=== PATIENT | female | born 1970 | race Caucasian/White ===

== ENCOUNTER 2017-05-06 10:40 | Emergency (ER) | payer BC ==
[2017-05-06 11:02] VITALS: BP 133/84
--- NOTE | 2017-05-06 11:25 | RAD ---
INDICATION: Atraumatic heel pain. TECHNIQUE: 4 views of the left calcaneus were obtained. FINDINGS: The bones are in normal alignment. No fracture is seen. Joint spaces appear maintained. There are spurs arising from the posterior and inferior aspect of the calcaneus. IMPRESSION: CALCANEAL SPURS.
--- NOTE | 2017-05-13 17:10 | UC ---
Lower Extremity/Ankle HPI - HPI Summary HPI Summary: 46 year old presents with complains of left heel pain - History of Current Complaint Chief Complaint: UCLowerExtremity Stated Complaint: LEFT HEEL PAIN Time Seen by Provider: 05/06/17 11:00 Hx Last Menstrual Period: 06/27/16 Pain Intensity: 8 Pain Scale Used: 0-10 Numeric - Allergies/Home Medications Allergies/Adverse Reactions: Allergies Allergy/AdvReac Type Severity Reaction Status Date / Time No Known Allergies Allergy Verified 05/06/17 10:55 PMH/Surg Hx/FS Hx/Imm Hx - Surgical History Surgical History: Yes Surgery Procedure, Year, and Place: tubal ligation age 26, endometriosis 2013 - Family History Known Family History: Positive: None - Social History Alcohol Use: Weekly Substance Use Type: None Smoking Status (MU): Former Smoker Type: Cigarettes When Did the Patient Quit Smoking/Using Tobacco: APPROX 10/2015 - Immunization History Most Recent Influenza Vaccination: NONE 2015 Most Recent Tetanus Shot: UTD Most Recent Pneumonia Vaccination: N/A Review of Systems Constitutional: Negative Skin: Negative Eyes: Negative ENT: Negative Respiratory: Negative Cardiovascular: Negative Gastrointestinal: Negative Genitourinary: Negative Motor: Negative Neurovascular: Negative Musculoskeletal: Other: - left heel pain Neurological: Negative Psychological: Negative All Other Systems Reviewed And Are Negative: Yes Physical Exam Triage Information Reviewed: Yes Vital Signs: Initial Vital Signs Temp 36.7 C 05/06/17 10:56 Pulse 74 05/06/17 10:56 Resp 16 05/06/17 10:56 BP 133/84 05/06/17 10:56 Pulse Ox 100 05/06/17 10:56 Eye Exam: Normal ENT Exam: Normal Dental Exam: Normal Neck exam: Normal Neck: Positive: 1 Respiratory Exam: Normal Cardiovascular Exam: Normal Abdominal Exam: Normal Musculoskeletal: Positive: ROM Limited @, Other: - left heel pain Neurological Exam: Normal Psychological Exam: Normal Skin Exam: Normal Lower Extremity Course/Dx - Differential Dx/Diagnosis Provider Diagnoses: left heel pain Discharge - Discharge Plan Condition: Stable Disposition: HOME Prescriptions: Methylprednisolone [Medrol Dosepak 4 MG*] 4 mg PO .SEE MIGUE INSTRUCTION #21 tab Patient Education Materials: Heel Spur (ED) Referrals: No Primary Care Phys,NOPCP [Primary Care Provider] - If Needed
== END 2017-05-06 11:36 | disposition home or self-care (01) ==
LOC: UCCORT 10:40
DX: M79.672 Pain in left foot (principal); Z87.891 Personal history of nicotine dependence
CPT/HCPCS: 99212; G0463

== ENCOUNTER 2017-10-06 09:54 | Emergency (ER) | payer OTHER ==
[2017-10-06 10:17] VITALS: BP 122/70
[2017-10-06] MEDS ORDERED: Ibuprofen TAB* 600 MG PO ONE (10:17)
--- NOTE | 2017-10-06 10:46 | RAD ---
HISTORY: Right shoulder pain COMPARISONS: None VIEWS: 4, Frontal internal rotation, external rotation, outlet, and axillary views of the right shoulder FINDINGS: BONE DENSITY: Normal. BONES: There is no displaced fracture. JOINTS: There is mild osteoarthritis of the a.c. and glenohumeral joints ALIGNMENT: There is no dislocation. SOFT TISSUES: Unremarkable. OTHER FINDINGS: None. IMPRESSION: OSTEOARTHRITIS. NO ACUTE OSSEOUS INJURY. IF SYMPTOMS PERSIST, RECOMMEND REPEAT IMAGING.
--- NOTE | 2017-10-06 10:46 | UC ---
Upper Extremity HPI - HPI Summary HPI Summary: 47 year old female with work in [employer]. Sudden onset right shoulder pain with "tingling" in right fifth finger while trying to break down a cardboard box at work at ~0930. No pain in shoulder at rest but patient states the pain in her fifth finger is 15/10 at rest. Patient works at [employer]. PCP Anaya Gillis. [ End ] - History of Current Complaint Chief Complaint: UCUpperExtremity Stated Complaint: WC-RT SHOULDER INJURY Time Seen by Provider: 10/06/17 10:41 Hx Obtained From: Patient Hx Last Menstrual Period: "last month" Onset/Duration: Sudden Onset Severity Initially: Mild Severity Currently: Severe Pain Scale Used: 0-10 Numeric - 15 Aggravating Factor(s): Movement Alleviating Factor(s): Nothing Associated Signs And Symptoms: Positive: Negative - Allergies/Home Medications Allergies/Adverse Reactions: Allergies Allergy/AdvReac Type Severity Reaction Status Date / Time Bee Venom Allergy Anaphylatic Verified 10/06/17 10:05 Shock PMH/Surg Hx/FS Hx/Imm Hx Previously Healthy: Yes - Surgical History Surgical History: Yes Surgery Procedure, Year, and Place: Endometriosis, 2013; Tubal Ligation, 1985 - Family History Known Family History: Positive: None - Social History Occupation: Employed Full-time Alcohol Use: Occasionally Substance Use Type: None Smoking Status (MU): Former Smoker Type: Cigarettes Length of Time of Smoking/Using Tobacco: Some Day Smoker When Did the Patient Quit Smoking/Using Tobacco: ~2016 Household Exposure Type: Cigarettes - Immunization History Most Recent Influenza Vaccination: Not the 2016/2017 Season Most Recent Tetanus Shot: UTD Most Recent Pneumonia Vaccination: N/A Review of Systems Musculoskeletal: Arthralgia, Decreased ROM All Other Systems Reviewed And Are Negative: Yes Physical Exam Triage Information Reviewed: Yes Appearance: Well-Appearing, Well-Nourished, Pain Distress - moderate Vital Signs: Initial Vital Signs Temp 99.4 F 10/06/17 10:03 Pulse 76 10/06/17 10:03 Resp 16 10/06/17 10:03 BP 122/70 10/06/17 10:03 Pulse Ox 100 10/06/17 10:03 Vital Signs Reviewed: Yes Respiratory Exam: Normal Cardiovascular Exam: Normal Musculoskeletal: Positive: ROM Limited @ - (+) Impingement sign. hand strength 5 /5. sensation intact. cap refill < 3 sec. peripheral pulses intact. limited ROM at shoulder. tenderness to palpation of the shoulder diffusely as well as medial elbow. hand and wrist FROM of normal strength Neurological Exam: Normal Psychological Exam: Normal Skin Exam: Normal Upper Extremity Course/Dx - Course Course Of Treatment: treat radiculopathy at this time. if sx worsen to go to ED - Differential Dx/Diagnosis Differential Diagnosis/HQI/PQRI: Fracture (Open), Strain, Sprain Provider Diagnoses: Cervical radiculopathy Discharge - Discharge Plan Condition: Good Disposition: HOME Prescriptions: Cyclobenzaprine TAB* [Flexeril 10 MG TAB*] 10 mg PO BID PRN #14 tab PRN Reason: Spasms Ibuprofen TAB* [Motrin TAB* 800 MG] 800 mg PO TID PRN #30 tab PRN Reason: Pain Methylprednisolone [Medrol Dosepak 4 MG*] 0 mg PO .SEE MIGUE INSTRUCTION #1 tab Patient Education Materials: Cervical Radiculopathy (ED) Forms: *Work Release Referrals: No Primary Care Phys,NOPCP [Primary Care Provider] - Juan Manuel Galloway MD [Medical Doctor] - As Soon As Possible (Ortho referral ) Additional Instructions: As we discussed if your symptoms worsen or you develop weakness in the arm then go to Emergency Room
== END 2017-10-06 11:05 | disposition home or self-care (01) ==
LOC: UCCORT 09:54
DX: M54.12 Radiculopathy, cervical region (principal); Z87.891 Personal history of nicotine dependence; Z72.89 Other problems related to lifestyle
CPT/HCPCS: 99212; A9270-GY; G0463

== ENCOUNTER 2017-10-12 10:24 | Emergency (ER) | payer OTHER ==
[2017-10-12 10:45] VITALS: BP 143/103
--- NOTE | 2017-10-12 10:58 | UC ---
Upper Extremity HPI - HPI Summary HPI Summary: Pt presents with right shoulder pain sustained at work on 10/06/17. She works at [employer] and tells me that she was cutting/tearing down a cardboard box and her left hand slipped and her right arm/shoulder was pulled and strained. She had immediate pain and was seen at [facility] that same day. At that time a shoulder XR was performed and was negative for acute process. She had numbness in her right pinky and was diagnosed with cervical radiculopathy - given prednisone, flexeril, and ibuprofen and advised to f/u with orthopedics. She is here today with continued pain. She was unable to see orthopedics because none of their providers currently treat spine related complaints. Today she tells me that the pain is in her posterior right shoulder with intermittent "burning" to her lateral right elbow, sometimes down to her right pinky finger. She has significant difficulty with shoulder flexion/extension. She has been taking ibuprofen with minimal relief. She takes the flexeril and finds that it helps, but can only take it at night because it makes her tired. She has not tried the steroid yet because she is afraid to take steroids as she has heard bad stories. Denies fever, chills, SOB, headache, dizziness, neck pain, chest pain, N/V/D/C. - History of Current Complaint Chief Complaint: UCUpperExtremity Stated Complaint: RIGHT SHOULDER INJURY F/U WC Time Seen by Provider: 10/12/17 10:57 Hx Obtained From: Patient Hx Last Menstrual Period: 10/08/17 Onset/Duration: Sudden Onset Severity Initially: Severe Severity Currently: Severe Pain Intensity: 10 Pain Scale Used: 0-10 Numeric Location Of Pain: Is Discrete @ Character: Dull, Aching, Spasmodic, Stiffness, Burning Aggravating Factor(s): Movement, Lifting, Flexion, Extension Alleviating Factor(s): Rest Associated Signs And Symptoms: Positive: Numbness/Tingling - Allergies/Home Medications Allergies/Adverse Reactions: Allergies Allergy/AdvReac Type Severity Reaction Status Date / Time Bee Venom Allergy Anaphylatic Verified 10/12/17 10:39 Shock PMH/Surg Hx/FS Hx/Imm Hx Previously Healthy: Yes - Surgical History Surgical History: Yes Surgery Procedure, Year, and Place: tubal ligation age 26, endometriosis 2013 - Family History Known Family History: Positive: None - Social History Occupation: Employed Full-time Lives: With Family Alcohol Use: Occasionally Substance Use Type: None Smoking Status (MU): Never Smoked Tobacco Type: Cigarettes Length of Time of Smoking/Using Tobacco: Some Day Smoker When Did the Patient Quit Smoking/Using Tobacco: APPROX 10/2015 Household Exposure Type: Cigarettes - Immunization History Most Recent Influenza Vaccination: NONE 2015 Most Recent Tetanus Shot: UTD Most Recent Pneumonia Vaccination: N/A Review of Systems Constitutional: Negative Skin: Negative Respiratory: Negative Cardiovascular: Negative Gastrointestinal: Negative Musculoskeletal: Decreased ROM - Right shoulder, Other: - Right shoulder pain Neurological: Numbness - Right UE Psychological: Negative All Other Systems Reviewed And Are Negative: Yes Physical Exam Triage Information Reviewed: Yes Appearance: Well-Appearing, No Pain Distress, Well-Nourished Vital Signs: Initial Vital Signs Temp 99.4 F 10/12/17 10:40 Pulse 72 10/12/17 10:40 Resp 18 10/12/17 10:40 BP 143/103 10/12/17 10:40 Vital Signs Reviewed: Yes Neck: Positive: Supple, No Lymphadenopathy, Other: - NTTP. FROM. Respiratory: Positive: Chest non-tender, Lungs clear, Normal breath sounds, No respiratory distress, No accessory muscle use Cardiovascular: Positive: RRR, No Murmur, Pulses Normal, Brisk Capillary Refill - B/L UEs Musculoskeletal: Positive: No Edema, Strength Limited @ - Right shoulder flexion 3/5 compared to left. Crab Steamer strength, abduction, and adduction 5/5 b/l., ROM Limited @ - Right shoulder flexion to 45 deg before pain in posterior shoulder., Other: - TTP over right trapezius and deltoid. No obvious bony deformities. Unable to perform reliable specialized testing due to pain and refusal. Neurological: Positive: Alert, Other: - C4-T1 sensations intact B/L UEs. No focal deficits Psychological: Positive: Age Appropriate Behavior Skin: Positive: Other - No erythema or ecchymosis overlying the right UE. Negative: rashes Upper Extremity Course/Dx - Course Course Of Treatment: She tells me that she does have a history of cervical degenerative disc disease, but has never had numbness or tingling in her UEs until this injury. It is possible she is experiencing cervical radiculopathy from a cervical pathology, but her sensations are intact at rest on exam today. She experinces 10/10 pain along the muscles of the lateral and posterior right shoulder when palpated. I believe the majority of her pain is coming from a muscle spasm/strain and that she would benefit from NSAIDs and physical therapy. Given previous dx of cervical radiculopathy, hx of cervical DDD, and current "numbness/burning" sensation - will refer to her neurosurgery for evaluation. IM toradol given today. Rx for ketorolac po for 5 days. Advised to take the steroids and flexeril as previously prescribed and stop ibuprofen. - Differential Dx/Diagnosis Differential Diagnosis/HQI/PQRI: Contusion, Strain, Sprain, Other - Cervical radiculopathy Provider Diagnoses: Right shoulder muscle spasm. Cervical radiculopathy Discharge - Discharge Plan Condition: Stable Disposition: HOME Prescriptions: Ketorolac TAB * [Toradol TAB *] 10 mg PO Q6H PRN #20 tab PRN Reason: Pain Patient Education Materials: Muscle Spasm (ED) Forms: *Work Release Referrals: No Primary Care Phys,NOPCP [Primary Care Provider] - Celso Godoy MD [Medical Doctor] - As Soon As Possible Additional Instructions: If you develop a fever, SOB, chest pain, new or worsening symptoms - please call your PCP or go to the ED. Your blood pressure was high at todays visit. Please see your primary provider within 4 weeks for recheck and re-evaluation. 1) Please do not take ibuprofen or other NSAIDs in addition to Ketorolac 2) Rest and heat your shoulder for 20 minutes every few hours during the day 3) Please call the number below to schedule an appointment with Dr. Godoy regarding your injury.
[2017-10-12] MEDS ORDERED: Ketorolac INJ* 30 MG/ML 1 ML VIAL IM ONE (11:14)
== END 2017-10-12 11:42 | disposition home or self-care (01) ==
LOC: UCCORT 10:24
DX: M62.838 Other muscle spasm (principal); M54.12 Radiculopathy, cervical region; X50.0XXA Overexertion from strenuous movement or load, initial encounter; Y93.89 Activity, other specified; Y92.69 Other specified industrial and construction area as the place of occurrence of the external cause; Y99.0 Civilian activity done for income or pay; Z72.89 Other problems related to lifestyle
CPT/HCPCS: 96372; 99212; G0463; J1885

== ENCOUNTER 2018-02-01 05:50 | Day surgery (SDC) | payer OTHER ==
[~2018-02-01 05:50] MED LIST: Buffered Lidocaine 0.9% SYRIN* 5 ML/SYR SYRINGE INTRADERM ONE
[2018-02-01] MEDS ORDERED: Famotidine TAB* 20 MG PO ONE (06:00)
[2018-02-01] MEDS ORDERED: Famotidine TAB* 20 MG ONE (06:01)
[2018-02-01] MEDS ORDERED: ceFAZolin 2 GM PREMIX (*) 2 GM/50 ML BAG IVPB ONE (06:01)
[2018-02-01] MEDS ORDERED: Buffered Lidocaine 0.9% SYRIN* 5 ML/SYR SYRINGE ONE (06:01)
[2018-02-01] MEDS ORDERED: ROPIVACAINE 5 MG/ML 30 ML BTL (0.5%) ONE (07:07)
[2018-02-01] MEDS ORDERED: Lidocaine 1%* 5 ML VIAL ONE (07:07)
[2018-02-01] MEDS ORDERED: fentaNYL* 50 MCG/ML 2 ML VIAL (100 MCG VIAL) ONE ×2 (07:20→08:52)
[2018-02-01] MEDS ORDERED: Midazolam* 1 MG/ML 5 ML VIAL (5 MG) ONE (07:20)
[2018-02-01] MEDS ORDERED: Bupivacaine 0.25% SDV* 30 ML ONE (07:21)
[2018-02-01] MEDS ORDERED: Midazolam* 1 MG/ML 2 ML VIAL (2 MG) ONE (08:01)
[2018-02-01] MEDS ORDERED: Ondansetron INJ* 2 MG/ML VIAL ONE (08:20)
[2018-02-01] MEDS ORDERED: Dexamethasone IV* 4 MG/ML 1 ML (4 MG) ONE (08:20)
[2018-02-01] MEDS ORDERED: Lidocaine 2% PF * 5 ML VIAL ONE (08:20)
[2018-02-01] MEDS ORDERED: Ketorolac INJ* 30 MG/ML 1 ML VIAL ONE (08:20)
[2018-02-01] MEDS ORDERED: Propofol* 10 MG/ML 20 ML BTL IV PUSH ONE (08:20)
[2018-02-01] MEDS ORDERED: Succinylcholine* 20 MG/ML 10 ML VIAL ONE (08:20)
[2018-02-01] MEDS ORDERED: oxyCODONE TAB* 5 MG TAB PO PRN (08:23)
[2018-02-01] MEDS ORDERED: Acetaminophen TAB* 325 MG PO PRN (08:23)
[2018-02-01] MEDS ORDERED: DiMENhydriNATE IV* 50 MG/ML VIAL IV PUSH PRN (08:23)
[2018-02-01] MEDS ORDERED: HYDROmorphone INJ* 1 MG/ML CARPUJECT SYRINGE IV PRN (08:23)
[2018-02-01] MEDS ORDERED: Naloxone* 0.4 MG/ML 1 ML VIAL IV PRN (08:23)
[2018-02-01 10:05] VITALS: BP 128/92
--- NOTE | 2018-02-01 12:50 | OP ---
DATE OF OPERATION: 02/01/18 - [facility] DATE OF : 68 SURGEON: Rowan Fuentes MD CUSTOM SHOEMAKER: KEYA Estrella. Waistline Joiner Overlock was needed for the entirety of the case to help with positioning, retraction, and was utilized throughout all portions of the case. ANESTHESIOLOGIST: Ale Parker MD ANESTHESIA: General interscalene block. PRE-OP DIAGNOSIS: Right shoulder high-grade partial thickness tear of the supraspinatus tendon and bicipital tendinitis. POST-OP DIAGNOSIS: Full-thickness tear of the supraspinatus with biceps rashmi injury with bicipital tendinitis and cervical impingement. OPERATIVE PROCEDURE: Right shoulder arthroscopy with: 1. Glenohumeral debridement. 2. Subacromial decompression with acromioplasty. 3. Rotator cuff repair of the supraspinatus tendon in a double-row fashion. 4. Subpectoral biceps tenodesis. INDICATIONS: Diana Mahan is a 47-year-old female, who sustained a work-related injury on 10/06/17. She failed conservative management. She had an MRI demonstrating a high-grade partial thickness tear of the rotator cuff. She had persistent pain and difficulty getting back to work. Risks and benefits of surgery were discussed at length include, but are not limited to, bleeding, infection, damage to nerves, vessels, surrounding structures, wound nonhealing, persistent pain, need for further surgery, scarring, stiffness, incomplete relief of symptoms, and risk of anesthesia. COMPLICATIONS: None. ESTIMATED BLOOD LOSS: Minimal. IMPLANTS USED: Two 4.5 Healicoil and one 2.8-mm Q-FIX anchor. DESCRIPTION OF PROCEDURE: The patient was greeted in the preoperative area by the attending surgeon. The correct extremity was marked and consent was confirmed. The patient underwent interscalene nerve block by anesthesiologist, after which she was brought back to the operating suite where she was placed in supine position on the operating table. She then underwent general anesthesia and endotracheal intubation after which she was positioned in the left lateral decubitus position. All bony prominences were padded. She was secured using a peg board and axillary roll was placed. The right arm was draped unsterile with 10 pounds of traction. The right arm was then prepped and draped in the usual sterile fashion beginning with chlorhexidine soap, scrub, and alcohol wipe and a final prep with ChloraPrep. After appropriate surgical pause indicating side, site, and procedure, and administration of antibiotics, the standard posterolateral portal was made sharply with an 11-blade. Scope was introduced into the joint and the joint was examined. There was abundant synovitis in the joint. There were grade 0 to 1 changes of the glenohumeral joint. There was anterior, posterior, and superior fraying of the labrum. The anterior portal was made in an outside-in fashion. There was evidence of damage to the rashmi as well as the interval. The shaver was used to debride the anterior, posterior, and superior labrum back as well as undersurface of the rashmi. The biceps was taken through range of motion. There was abundant erythema. This was then tenotomized. The undersurface of the subscap was intact. There was a full-thickness tear of the supraspinatus tendon. Part of the infraspinatus had partial-thickness tearing. After the debridement, the inferior recess was intact, but there was mild fraying and synovitis that was present. The scope was removed from the joint and then placed in the subacromial space. With the scope in the subacromial space, a lateral portal was made in outside- in fashion. There was abundant bursa present that was removed with a shaver, which exposed an irregular downward-sloping anterolateral acromion. This was debrided back using a 4.0 oval bur. All excess bone and debris was removed. The bone quality was quite good. At this point, the shaver was used to remove the remainder of the bursa and the cuff was gently probed. There was evidence of full-thickness tear mostly anteriorly above the supraspinatus tendon. This was then carefully released using an 11 blade. The poor quality tissue extended all the way almost the beginning of the infraspinatus involving most of the supraspinatus tendon. The electrocautery device was used to help skeletonize the greater tuberosity. The rasp was used to rasp this. Again, this was really good quality bone. The 4.0 oval bur was then used to gently decorticate to allow for good bony bleeding bed. The cuff tissue was then debrided back using the shaver and carefully mobilized. At this point, two 4.75 Healicoil was placed with excellent purchase along the medial aspect of the footprint. The tissues were passed through the tendon in horizontal mattress configuration and tied down. The suture strands were then passed through a MultiFix anchor, which was placed laterally for lateral row fixation. This allowed for shinto of the cuff to its footprint as well as compression. The final images were obtained. The shoulder was taken through a range of motion. The wounds were copiously irrigated with sterile saline and attention was directed to the biceps. The bed was airplaned to the right side. The anterior aspect was prepped again using ChloraPrep. A 15-blade was used to make an incision in line with the biceps tendon encompassing the inferior portion of the pec tendon. The pec was then elevated. The biceps was then brought through the wound. The groove was then prepared in the usual fashion using electrocautery device, then the rasp and the osteotome to allow for bony bleeding bed. The Q-FIX drill guide was then placed in the center of the groove and drilled unicortically. The Q-FIX was deployed with excellent purchase. The sutures were passed through the tendon approximately 1 cm proximal to the musculotendinous junction in a Shahriar- Mg type configuration. The excess stump was excised and the biceps was shuttled back to the wound and tied down and secured. The wounds were copiously irrigated with sterile saline. The anterior wound was closed in layers with 2-0 Vicryl and 3-0 Monocryl. The portals were closed with 3-0 nylon. The anterior wound was injected with 0.25% Marcaine plain. Sterile dressings were applied as well as a Cryo/Cuff and UltraSling. She was awoken from anesthesia and transferred to PACU in stable condition. POSTOPERATIVE PLAN: She will be nonweightbearing. She will be allowed range of motion of the elbow, wrist, and hand. She will be discharged on pain medications, antibiotics. DVT prophylaxis was considered, but deferred due to no previous personal or family history. I will see the patient back in 10 to 14 days. [id number]/[facility] #: [id number] [facility]
== END 2018-02-01 10:19 | disposition home or self-care (01) ==
LOC: OR 05:50
PROVIDERS: ATTEND Orthopaedic Surgery
DX: S46.011A Strain of muscle(s) and tendon(s) of the rotator cuff of right shoulder, initial encounter (principal); S46.101A Unspecified injury of muscle, fascia and tendon of long head of biceps, right arm, initial encounter; Z72.0 Tobacco use; M19.90 Unspecified osteoarthritis, unspecified site; F41.8 Other specified anxiety disorders; K21.9 Gastro-esophageal reflux disease without esophagitis; X58.XXXA Exposure to other specified factors, initial encounter; Y92.9 Unspecified place or not applicable; Y99.0 Civilian activity done for income or pay; G89.18 Other acute postprocedural pain
CPT/HCPCS: A9270-GY; C1713; C1776; J0330; J0690; J1100; J1885; J2250; J2405; J2704; J2795; J3010

== ENCOUNTER 2019-02-26 15:47 | Emergency (ER) | payer OTHER ==
--- OUTSIDE RECORDS SUMMARY | 2019-02-26 16:10 | XMS REPORT | Continuity of Care Document ---
:1970 External Reference #:[id number] Author Name Hortensia Haque Care Team Providers Name Role Phone Shannon Rojo FNP Primary Care Physician Unavailable Payers Date Identification Numbers Payment Provider Subscriber Policy Number: [id number] [facility] Diana Mahan Group Number: [id number] [address] [phone] PayID: [id number] [place] [address] Effective: 2017 Policy Number: [id number] Thierno Mahan Expires: 2019 Group Name: [phone] [address] [address] Onset: 2017 PayID: [id number] [place] [address] Onset: 2015 Policy Number: [id number] Thierno Mahan Group Name: [phone] [address] [address] PayID: [id number] [place] [address] Effective: 2017 Policy Number: [id number] Thierno Mahan Onset: 2017 Group Name: [phone] [address] [address] PayID: [id number] [place] [address] Advance Directives Description No Information Available Problems Active Problems Provider Date Low back pain Perla Velázquez M.D. Onset: 10/23/2015 Carpal tunnel syndrome Celso Knowles M.D. Onset: 10/23/2015 Brachial neuritis Celso Godoy M.D. Onset: 10/26/2017 Neck pain Celso Godoy M.D. Onset: 11/14/2017 Shoulder joint pain Celso Godoy M.D. Onset: 11/14/2017 Disorder of shoulder Rowan Fuentes MD Onset: 11/22/2017 Injury of shoulder region Rowan Fuentes MD Onset: 11/22/2017 Strain of muscle(s) and tendon(s) of the Rowan Fuentes MD Onset: 01/19/2018 rotator cuff of right shoulder, subsequent encounter Strain of rotator cuff capsule Rowan Fuentes MD Onset: 02/14/2018 Bicipital tenosynovitis Rowan Fuentes MD Onset: 04/25/2018 Degeneration of cervical intervertebral disc Celso Godoy M.D. 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 Tylenol Extra 2 by mouth as Unknown Strength needed 500mg Tablets History Medications Oxycodone-Acetaminophen 1-2 tabs by 40tabs Rowan Fuentes 02/01/2018 - 5-325mg Tablets mouth every 4-6 04/24/2018 hours as needed for pain Cephalexin take 1 by mouth 12tabs Rowan Fuentes 02/01/2018 - 500mg Tablets four times a day 04/24/2018 x 3 days Amoxicillin Take as Other 01/18/2018 - 500mg Capsules prescribed Ordering 04/24/2018 Provider Valium take 1-2 tabs 30 2tabs Rowan Fuentes 12/09/2017 - 5mg Tablets min prior to 01/18/[address] while on meds Diclofenac Sodium take 1 tablet 60tabs M75.4 Rowan Fuentes, 11/22/2017 - 75mg Tablets DR twice a day with 1 04/24/2018 food Cyclobenzaprine HCL one tablet up to 60tabs Zaid Jackson 10/23/2015 - 10mg Tablets threee times a [place] 04/24/2018 day as needed Hydrocodone-Acetaminophen 1 by mouth every Perla 10/23/2015 - 5-325mg 6-8 hours prn. El Velázquez 11/14/2015 Tablets Ibuprofen 1 tablet every Perla 10/23/2015 - 200mg Tablets 4-6 hrs El Velázquez 10/24/2017 Ibuprofen three times a 90tabs Zaid Jackson 10/23/2015 - 600mg Tablets day as needed [place] 10/24/2017 Ketorolac Tromethamine take 1 tablet by Unknown - 10mg Tablets mouth every 6 01/18/2018 hours if needed for pain Medications Administered in Office Medication SIG Qnty Indications Ordering Provider Date Triamcinolone (Kenalog) Rowan Fuentes MD 05/25/2018 Injection Triamcinolone (Kenalog) Rowan Fuentes MD 11/22/2017 Injection Immunizations Description No Information Available Vital Signs Date Vital Result Comment 02/09/2019 8:08am Height 64 inches Weight 163.00 lb Heart Rate 77 /min BP Systolic 116 mmHg BP Diastolic 70 mmHg Body Temperature 97.7 F Pain Level 3 BMI (Body Mass Index) 28.0 kg/m2 01/09/2019 1:02pm Height 64 inches 5'4" Weight 146.00 lb BP Systolic 124 mmHg BP Diastolic 74 mmHg Respiratory Rate 18 /min Pain Level 2 BMI (Body Mass Index) 25.1 kg/m2 11/30/2018 11:11am Height 64 inches 5'4" Weight 146.00 lb BP Systolic 108 mmHg BP Diastolic 62 mmHg Respiratory Rate 18 /min Pain Level 0 BMI (Body Mass Index) 25.1 kg/m2 09/28/2018 10:30am Height 64 inches 5'4" Heart Rate 64 /min BP Systolic Sitting 110 mmHg BP Diastolic Sitting 70 mmHg Pain Level 1 07/28/2018 9:58am Height 64 inches 5'4" Weight 146.00 lb Heart Rate 64 /min BP Systolic 110 mmHg BP Diastolic 60 mmHg Body Temperature 96.5 F Pain Level 2 right shoulder BMI (Body Mass Index) 25.1 kg/m2 06/22/2018 10:14am Height 64 inches 5'4" Weight 143.00 lb BP Systolic 124 mmHg BP Diastolic 78 mmHg Respiratory Rate 18 /min Pain Level 0 BMI (Body Mass Index) 24.5 kg/m2 2018 1:47pm Height 64 inches 5'4" Weight 143.00 lb BP Systolic Sitting 104 mmHg BP Diastolic Sitting 70 mmHg Pain Level 1 BMI (Body Mass Index) 24.5 kg/m2 05/25/2018 10:40am Height 64 inches 5'4" Weight 143.00 lb BP Systolic 132 mmHg BP Diastolic 60 mmHg Respiratory Rate 18 /min Pain Level 3 BMI (Body Mass Index) 24.5 kg/m2 05/23/2018 10:05am Height 64 inches 5'4" Weight 143.00 lb BP Systolic 120 mmHg BP Diastolic 70 mmHg Respiratory Rate 18 /min Pain Level 3 BMI (Body Mass Index) 24.5 kg/m2 04/25/2018 10:04am Height 64 inches 5'4" Weight 143.00 lb Heart Rate 68 /min BP Systolic Sitting 134 mmHg Lue reg cuff BP Diastolic Sitting 76 mmHg Lue reg cuff Body Temperature 98.6 F Pain Level 0 BMI (Body Mass Index) 24.5 kg/m2 03/14/2018 9:34am Height 64 inches 5'4" Weight 143.00 lb BP Systolic 128 mmHg BP Diastolic 68 mmHg Respiratory Rate 18 /min Pain Level 0 BMI (Body Mass Index) 24.5 kg/m2 02/14/2018 11:25am Height 64 inches 5'4" Weight 143.00 lb BP Systolic 120 mmHg BP Diastolic 70 mmHg Respiratory Rate 18 /min Body Temperature 98.3 F Pain Level 0 BMI (Body Mass Index) 24.5 kg/m2 01/19/2018 9:44am Height 64 inches 5'4" Weight 143.00 lb Heart Rate 76 /min BP Systolic 120 mmHg BP Diastolic 74 mmHg Respiratory Rate 12 /min Body Temperature 98.7 F Pain Level 0 BMI (Body Mass Index) 24.5 kg/m2 12/20/2017 1:22pm Height 64 inches 5'4" Weight 143.00 lb per pt Heart Rate 88 /min reg BP Systolic Sitting 132 mmHg Lue BP Diastolic Sitting 84 mmHg Lue Respiratory Rate 16 /min Pain Level 0 at rest, 10 w/ activity BMI (Body Mass Index) 24.5 kg/m2 12/07/2017 12:58pm Height 64 inches 5'4" Weight 143.00 lb Heart Rate 83 /min BP Systolic Sitting 124 mmHg BP Diastolic Sitting 74 mmHg Pain Level 3 BMI (Body Mass Index) 24.5 kg/m2 11/22/2017 9:30am Height 64 inches 5'4" Weight 143.00 lb BP Systolic 118 mmHg BP Diastolic 68 mmHg Respiratory Rate 18 /min Body Temperature 98.8 F Pain Level 10 BMI (Body Mass Index) 24.5 kg/m2 11/14/2017 10:10am Height 64 inches 5'4" Weight 143.00 lb Heart Rate 105 /min BP Systolic Sitting 136 mmHg BP Diastolic Sitting 72 mmHg Pain Level 3 BMI (Body Mass Index) 24.5 kg/m2 10/26/2017 3:10pm Height 64 inches 5'4" Weight 145.00 lb Heart Rate 104 /min BP Systolic Sitting 122 mmHg BP Diastolic Sitting 72 mmHg Respiratory Rate 16 /min Pain Level 5 can go up to a 10 O2 % BldC Oximetry 97 % Ra BMI (Body Mass Index) 24.9 kg/m2 01/26/2017 4:28pm Weight 153.00 lb Heart Rate 70 /min BP Systolic Sitting 120 mmHg BP Diastolic Sitting 72 mmHg Respiratory Rate 15 /min Body Temperature 98.6 F O2 % BldC Oximetry 98 % 11/14/2015 10:57am Heart Rate 84 /min BP Systolic Sitting 96 mmHg BP Diastolic Sitting 64 mmHg Body Temperature 98.5 F O2 % BldC Oximetry 98 % 10/30/2015 9:30am Height 64 inches 5'4" Weight 148.00 lb Heart Rate 80 /min BP Systolic 117 mmHg BP Diastolic 79 mmHg Body Temperature 98.9 F O2 % BldC Oximetry 100 % BMI (Body Mass Index) 25.4 kg/m2 10/23/2015 8:49am Height 64 inches 5'4" Weight 146.00 lb Heart Rate 74 /min BP Systolic 112 mmHg BP Diastolic 78 mmHg Body Temperature 98.6 F O2 % BldC Oximetry 98 % BMI (Body Mass Index) 25.1 kg/m2 Results Description No Information Available Procedures Date Code Description Status 05/25/2018 38066 Ultrasound, Extremity, Nonvascular, Real-Time W/Image Completed Doc,Limited 05/25/201855137 Inject/Drain Joint/Bursa Major W/O US Completed 02/01/2018 97837 Arthroscopy Shoulder,W/Rotator Cuff Repair Completed 02/01/2018 44796 Arthroscopy Shoulder,W/Rotator Cuff Repair Completed 02/01/2018 88522 Arthroscopy,Shoulder Decompression Of Subacromial Completed Space W/Acromio 02/01/2018 21409 Arthroscopy,Shoulder Decompression Of Subacromial Completed Space W/Acromio 02/01/2018 62680 Arthroscopy Shoulder Debridement Extensive Completed 02/01/2018 78235 Arthroscopy Shoulder Debridement Extensive Completed 02/01/2018 02565 Tenodesis Biceps Long Tendon Completed 02/01/2018 34978 Tenodesis Biceps Long Tendon Completed 11/22/201709944 Inject/Drain Joint/Bursa Major W/O US Completed 10/17/2014 98376762 Mammogram Completed 10/17/2014 630134933 Diabetic Retinal Eye Exam Completed 02/01/2013 72955 Nerve Conduction 07-08 Studies Completed 02/01/2013 33809 Needle Electromyography Complete, Five Or More Muscles Completed Studied Encounters Type Date Location Provider Dx Diagnosis Office Visit 01/09/2019 Orthopedic Rowan Fuentes MD S46.211D Strain of 1:45p Services Of [place].MEctorA. chelo/fasc/tend prt biceps, right arm, subs M75.21 Bicipital tendinitis, right shoulder Office Visit 11/30/2018 Armond Fuentes, S46.211D Strain of 11:30a Services Of [place]/fasc/tend prt C.M.A. biceps, right arm, subs M75.21 Bicipital tendinitis, right shoulder M50.320 Other cerv disc degeneration, mid-cervical rgn, unsp level S46.211D Strain of chelo/fasc/tend prt biceps, right arm, subs Office Visit 09/28/2018 Armond Fuentes S46.211D Strain of 10:30a Services Of [place]/fasc/tend prt C.M.A. biceps, right arm, subs M75.21 Bicipital tendinitis, right shoulder M50.320 Other cerv disc degeneration, mid-cervical rgn, unsp level Office Visit 07/28/2018 Orthopedic Zaneb Yaseen, S46.211D Strain of 10:30a Services Of [place]/fasc/tend prt C.M.A. biceps, right arm, subs M75.21 Bicipital tendinitis, right shoulder Office Visit 06/22/2018 Orthopedic Rowan Fuentes, M50.320 Other cerv disc 10:45a Services Of degeneration, C.M.A. mid-cervical rgn, unsp level S46.011A Strain of chelo/tend the rotator cuff of right shoulder, init M75.21 Bicipital tendinitis, right shoulder S46.011D Strain of musc/tend the rotator cuff of right shoulder, subs Office Visit 2018 1:50p Neurosurgery Celso Godoy M54.2 Cervicalgia Services Of Re Gallegos M50.320 Other cerv disc degeneration, mid-cervical rgn, unsp level Office Visit 05/23/2018 10:15a Orthopedic Rowan Fuentes S46.011A Strain of Services Of MD [place]/tend the C.M.A. rotator cuff of right shoulder, init M75.21 Bicipital tendinitis, right shoulder M54.12 Radiculopathy, cervical region S46.011D Strain of chelo/tend the rotator cuff of right shoulder, subs Office Visit 12/20/2017 1:45p Orthopedic Rowan Fuentes, M25.511 Pain in right Services Of shoulder C.M.A. S46.011D Strain of chelo/tend the rotator cuff of right shoulder, subs S46.101D Unsp injury of musc/fasc/tend long hd bicep, right arm, subs S46.111D Strain of musc/fasc/tend long hd bicep, right arm, subs Office Visit 12/07/2017 Neurosurgery Celso Godoy M75.41 Impingement 1:10p Services Of [place] syndrome of right shoulder M54.2 Cervicalgia Office Visit 11/22/2017 10:00a Orthopedic Rowan Fuentes M75.41 Impingement Services Of syndrome of right C.M.A. shoulder S46.101A Unsp injury of musc/fasc/tend long hd bicep, right arm, init M75.41 Impingement syndrome of right shoulder Office Visit 11/14/2017 10:00a Neurosurgery Celso [place], M54.2 Cervicalgia Services Of Re Gallegos M54.2 Cervicalgia M25.511 Pain in right shoulder M25.511 Pain in right shoulder Office Visit 10/26/2017 Neurosurgery Celso M54.12 Radiculopathy, 3:30p Services Of [facility] AT [place] cervical region [place] M54.12 Radiculopathy, cervical region Office Visit 01/26/2017 4:20p [facility] Internal Zaid Whitehead1 Headache Medicine - [place] [facility] Office Visit 11/14/2015 11:00a [facility] Ilia German.5 Low back pain Medicine MDae Office Visit 10/30/2015 9:40a [facility] Pawan German5 Low back pain Medicine MDae Office Visit 10/23/2015 9:00a [facility] Pawan German5 Low back pain Medicine MDae Office Visit 02/01/2013 2:00p Chintan/Manny Mcarthur 354.0 Carpal Tunnel Neurologic Serv Of [place] Syndrome [facility] 719.41 Pain Joint Shoulder Region Plan of Treatment 01/09/2019 - Rowan Fuentes, MDS46.211D Strain of muscle, fascia and tendon of other parts of bicepsFollow up:Follow up:M75.21 Bicipital tendinitis, right shoulder
[2019-02-26 16:15] VITALS: BP 119/74
--- NOTE | 2019-02-26 16:34 | UC ---
Upper Extremity HPI - HPI Summary HPI Summary: 48-year-old female presents with complaints of a work-related injury to her left thumb and upper left arm that occurred around 11 AM this morning. States she was assisting some coworkers to lift a animal crate over a mild lumbar and the crate slipped. She attempted to catch the crate causing a hyperextension injury to her left thumb and then she was struck in the mid upper left arm by the edge of the crate. States she has no pain in her thumb at the present however that the pain in her left upper arm has progressively gotten worse since the time of the injury. Denies any numbness or tingling to the extremity. - History of Current Complaint Chief Complaint: UCUpperExtremity Stated Complaint: W/C LT ARM INJURY Time Seen by Provider: 02/26/19 16:11 Hx Obtained From: Patient Hx Last Menstrual Period: 10/08/17 Pain Intensity: 6 - Allergies/Home Medications Allergies/Adverse Reactions: Allergies Allergy/AdvReac Type Severity Reaction Status Date / Time bee venom Allergy Anaphylatic Uncoded 02/01/18 06:18 Shock PMH/Surg Hx/FS Hx/Imm Hx Previously Healthy: Yes - Surgical History Surgical History: Yes Surgery Procedure, Year, and Place: Tubal ligation age 26. Laparascopy for Endometriosis 2013. Right rotator cuff and bicep repair 01/2018 [place] [place] - Family History Known Family History: Positive: Non-Contributory - Social History Occupation: Employed Full-time Lives: With Family Alcohol Use: Occasionally Substance Use Type: None Smoking Status (MU): Former Smoker Type: Cigarettes Amount Used/How Often: social smoker Length of Time of Smoking/Using Tobacco: Some Day Smoker When Did the Patient Quit Smoking/Using Tobacco: APPROX 10/2014 Household Exposure Type: Cigarettes - Immunization History Most Recent Influenza Vaccination: NONE 2016 Most Recent Tetanus Shot: UTD Most Recent Pneumonia Vaccination: N/A Review of Systems All Other Systems Reviewed And Are Negative: Yes Skin: Negative: Bruising Respiratory: Positive: Negative Cardiovascular: Positive: Negative Gastrointestinal: Positive: Negative Genitourinary: Positive: Negative Motor: Negative: Weakness Neurovascular: Negative: Decreased Sensation Musculoskeletal: Positive: Other: - See HPI Neurological: Positive: Negative Is Patient Immunocompromised?: No Physical Exam - Summary Physical Exam Summary: GENERAL APPEARANCE: Well developed, well nourished, alert and cooperative, and appears to be in no acute distress. NECK: Neck supple, non-tender. CARDIAC: Normal S1 and S2. No S3, S4 or murmurs. Rhythm is regular. There is no peripheral edema, cyanosis or pallor. Extremities are warm and well perfused. Capillary refill is less than 2 seconds. Peripheral pulses intact. LUNGS: Clear to auscultation without rales, rhonchi, wheezing or diminished breath sounds. ABDOMEN: Positive bowel sounds. Soft, nondistended, nontender. No guarding or rebound. No masses or hepatosplenomegally. MUSKULOSKELETAL: ROM intact to all extremities. No joint erythema or tenderness. Normal muscular development. Normal gait. EXTREMITIES: No tenderness, ecchymosis, edema, gross deformity, or reduced range of motion of the left thumb. She had full range of motion. Tenderness to the mid left upper arm over the lateral biceps without ecchymosis, edema, or gross deformity. Full range of motion to the left elbow and shoulder. Circulation and sensation intact SKIN: Skin normal color, texture and turgor with no lesions or eruptions. Triage Information Reviewed: Yes Vital Signs: Initial Vital Signs Temp 97.7 F 02/26/19 16:09 Pulse 71 02/26/19 16:09 Resp 16 02/26/19 16:09 BP 119/74 02/26/19 16:09 Pulse Ox 100 02/26/19 16:09 Vital Signs Reviewed: Yes Diagnostics - Radiology No standard instances Radiology Interpretation Completed By: Radiologist Summary of Radiographic Findings: Order Information: HUMERUS LEFT. Accession Number: [id number]. CPT: 65342. Indication: Left arm pain. 2 views of the left humerus demonstrates no fracture. No other bone or joint abnormality is identified. IMPRESSION: No fracture of the left humerus is noted. Order Information: THUMB LEFT. Accession Number: [id number]. CPT: 71046. HISTORY: work injury . COMPARISONS: None relevant available at the time of dictation. VIEWS: 3, Frontal, lateral, and oblique views of the first digit of the left hand. FINDINGS: BONE DENSITY: Normal. BONES: There is no displaced fracture. 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 ALIGNMENT: There is no dislocation. SOFT TISSUES: Unremarkable. OTHER FINDINGS: None. IMPRESSION: NO ACUTE OSSEOUS INJURY. Upper Extremity Course/Dx - Course Course Of Treatment: 48-year-old female presents with complaints of a work-related injury to her left thumb and upper left arm that occurred around 11 AM this morning. States she was assisting some coworkers to lift a animal crate over a mild lumbar and the crate slipped. She attempted to catch the crate causing a hyperextension injury to her left thumb and then she was struck in the mid upper left arm by the edge of the crate. States she has no pain in her thumb at the present however that the pain in her left upper arm has progressively gotten worse since the time of the injury. Denies any numbness or tingling to the extremity. Afebrile. Vital signs stable. Exam revealed no tenderness, ecchymosis, edema, gross deformity, or reduced range of motion of the left thumb. She had full range of motion. Tenderness to the mid left upper arm over the lateral biceps without ecchymosis, edema, or gross deformity. Full range of motion to the left elbow and shoulder. Circulation and sensation intact. X-ray of the left thumb and humerus were negative. Recommending conservative treatment for a mild left thumb sprain and left upper arm contusion. She is to follow-up with occupational medicine in 5-7 days if symptoms do not improve. Anticipatory guidance and warning symptoms are reviewed with the patient. Verbalizes understanding and agrees with plan of care. - Differential Dx/Diagnosis Differential Diagnosis/HQI/PQRI: Contusion, Fracture (Closed), Strain, Sprain Provider Diagnosis: Contusion of left upper arm, Left thumb sprain Discharge - Sign-Out/Discharge Documenting (check all that apply): Patient Departure All imaging exams completed and their final reports reviewed: Yes - Discharge Plan Condition: Stable Disposition: HOME Patient Education Materials: Contusion in Adults (ED), Finger Sprain (ED) Referrals: Shannon Rojo [Primary Care Provider] - Amandeep Jaramillo MD [Medical Doctor] - 7 Days (If no improvement in symptoms.) Additional Instructions: The x-ray performed in the clinic today showed no evidence of a fracture. I suspect that you have a contusion (bruise) of the upper arm and mild sprain of the thumb, Rest the arm as much as possible. Apply ice to the affected area for 15-20 minutes at least 4 times a day to help with the pain and swelling. Elevate the hand to help reduce swelling. Take acetaminophen (Tylenol) or ibuprofen (Advil, Motrin) according to directions as needed for pain. Follow up with Dr. Jaramillo, occupational medicine, in 7 days if symptoms do not improve. Seek immediate medical attention if you have severe pain not managed with pain medication, you are unable to walk or bear any weight, develop numbness or tingling in the arm, hand, or fingers, or have any worsening of symptoms. - Billing Disposition and Condition Condition: STABLE Disposition: Home
== END 2019-02-26 16:39 | disposition home or self-care (01) ==
LOC: UCCORT 15:47
DX: S40.022A Contusion of left upper arm, initial encounter (principal); S63.602A Unspecified sprain of left thumb, initial encounter; X50.0XXA Overexertion from strenuous movement or load, initial encounter; Y93.89 Activity, other specified; Y92.89 Other specified places as the place of occurrence of the external cause; M19.042 Primary osteoarthritis, left hand; M18.12 Unilateral primary osteoarthritis of first carpometacarpal joint, left hand; Z91.030 Bee allergy status; Z87.891 Personal history of nicotine dependence
CPT/HCPCS: 99211; G0463

== ENCOUNTER → 2019-06-20 05:32 | Day surgery (SDC) | payer OTHER ==
[~2019-06-20 05:32] MED LIST changes: +Atracurium* 10 MG/ML 10 ML VIAL ONE; -Buffered Lidocaine 0.9% SYRIN* 5 ML/SYR SYRINGE INTRADERM ONE; +Buffered Lidocaine 1% SYRIN* 1 ML/SYRINGE INTRADERM ONE; +Dexamethasone IV* 4 MG/ML 1 ML (4 MG) IV SLOW PU ONE; +Dexamethasone IV* 4 MG/ML 1 ML (4 MG) ONE; +DiMENhydriNATE IV* 50 MG/ML VIAL IV PUSH PRN; +Famotidine IV* 10 MG/ML 2 ML (20 mg) IV ONE; +Famotidine IV* 10 MG/ML 2 ML (20 mg) ONE; +HYDROmorphone INJ1* 1 MG/ML SYRINGE IV PRN; +Lactated Ringers 1000 ML Bag* 1,000 ML IV SCH; +Midazolam* 1 MG/ML 5 ML VIAL (5 MG) ONE; +Naloxone* 0.4 MG/ML 1 ML VIAL IV PRN; +Ondansetron INJ* 2 MG/ML VIAL IV PRN; +Ondansetron INJ* 2 MG/ML VIAL ONE; +Propofol* 10 MG/ML 20 ML BTL ONE; +ROPIVACAINE 5 MG/ML 30 ML BTL (0.5%) ONE; +Ropivacaine 0.2% * 2 MG/ML VIAL ONE; +ceFAZolin 2 GM in NS PREMIX(*) 2 GM/100 ML BAG IVPB ONE; +fentaNYL* 50 MCG/ML 2 ML VIAL (100 MCG VIAL) IV PRN; +fentaNYL* 50 MCG/ML 2 ML VIAL (100 MCG VIAL) ONE; +oxyCODONE/Acetamin 5/325 MG* TAB PO PRN
[2019-06-20 09:33] VITALS: BP 137/91
--- NOTE | 2019-06-20 12:12 | OP ---
OPERATIVE REPORT: DATE OF OPERATION: 06/20/19 DATE OF : 68 SURGEON: Rowan Fuentes MD POULTRY CLEANER: KEYA Estrella. An therapeutic recreation assistant was needed for the entirety of the case to help with positioning, retraction, and utilized throughout all portions of the case. ANESTHESIOLOGIST: Dr. Mancilla. ANESTHESIA: General interscalene block. PRE-OP DIAGNOSIS: Left shoulder full-thickness tear of the rotator cuff with bicipital tendonitis. POST-OP DIAGNOSIS: Left shoulder full-thickness tear of the rotator cuff with bicipital tendonitis. OPERATIVE PROCEDURE: Left shoulder arthroscopy with 1. Extensive glenohumeral debridement. 2. Subacromial decompression with acromioplasty. 3. Rotatory cuff repair in a double-row fashion, augmented with a Regeneten patch. 4. Open biceps tenodesis. COMPLICATIONS: None. ESTIMATED BLOOD LOSS: Minimal. IMPLANTS USED: 1 Healicoil, 1 MULTIFIX, and 1 Regeneten patch, 1 qfix. INDICATIONS: Diana Mahan is a 49-year-old female who sustained an injury to her shoulder on 02/26/19. She was diagnosed with a rotator cuff tear. She has failed conservative management and has persistent pain and inability to get back to her activities. She has elected to proceed with operative treatment. Risks and benefits were discussed at length, included but not limited to bleeding; infection; damage to nerves, vessels, surrounding structures; wound nonhealing; persistent pain; need for surgery; scaring; stiffness; incomplete relief of symptoms; and risks of anesthesia; need for further surgery; retear; stiffness; persistent pain; risk of frozen shoulder. DESCRIPTION OF PROCEDURE: The patient was greeted in the preoperative area by the attending surgeon, correct extremity was marked, consent was confirmed. The patient was brought back to the operating suite. She was placed in the supine position on the operating room table, then underwent interscalene nerve block by anesthesiologist after which she was brought back to the operative suite. She was placed in a supine position on the operating room table, then underwent general anesthesia after which she was properly positioned in the right lateral decubitus position. All bony prominences were padded. She was secured with a peg board. An axillary roll was placed. The left shoulder was then prepped and draped in the usual sterile fashion beginning with chlorhexidine soap, scrub, and alcohol wipe, and a final prep with ChloraPrep. After appropriate surgical pause indicating site, side, procedure, administration of antibiotics, the standard posterolateral portal was made sharp with an 11 blade. Scope was introduced into the joint. The joint was examined. There was abundant synovitis and erythema present. There was evidence of full-thickness tear of the rotator cuff. The biceps was subluxed somewhat and the poly was damaged. There was a type 2 SLAP tear as well. The subscap appeared to be intact. There was significant synovitis. The inferior recess was intact. The anterior portal was made in an outside-in fashion. Shaver was used to debride back the anterior, posterior, and superior labrum. Biceps was tenotomized for later tenodesis. The undersurface of the rotator cuff was debrided back. Once the debridement was complete, attention was directed to the subacromial space. The scope was introduced into the subacromial space. Lateral portals were made in an outside-in fashion. Ava were used debride back the abundant bursa that was present. The undersurface of the acromion was skeletonized. It had a very irregular anterolateral spur which was debrided back using a 4-0 oval yoana. All excess debris was removed. The very superior aspect of the supraspinatus tendon had a full-thickness tear with some retraction. The footprint was then prepared in the usual fashion using electrocautery device , the rasp, as well as the 4-0 oval yoana. There was good quality bone that was present. The cuff, tendon tissue was then gently debrided back and mobilized. Once this was found to be appropriately restored, through a separate stab incision, a 4.75 Healicoil was placed, there was excellent bone quality, so the screw hole had to be tapped first. [place] was deployed with excellent purchase and well fixed. Suture were then passed through the tendon in a horizontal mattress configuration and then it was tied down using arthroscopic knot-tying technique. This helped to reapproximate the cuff. This was then passed through a MULTIFIX anchor for double row fixation. Once this was done, the decision was made to augment this with a Regeneten patch to: a. Allow this to heal a little bit better. b. For pain control. c. It could address a partial thickness tearing that was more posterior to the rotator cuff if that may have been present. Therefore, a Regeneten patch was brought to the field, size medium. Once this was appropriately placed arthroscopically, the tendon vale were placed through a separate stab incision and secured medially and then laterally with bone vale. Final images were obtained which showed the patch was placed well and the shoulder was tested with gentle range of motion. The wounds were copiously irrigated with sterile saline. Attention was directed to the biceps. The bed was airplaned to the left side. The anterior aspect of the shoulder was prepped again using ChloraPrep. The 15 blade was used to make an incision in line with the biceps tendon. Soft tissues were carefully dissected to expose the pec fascia. All the dissection was done bluntly. The biceps was then palpated and brought through the wound. The groove was then prepared in the usual fashion with electrocautery device, red ball rasp, and osteotome. At this point, once the good bony bleeding bed had been made, the Q-FIX was then drilled unicortically and deployed with excellent purchase. The sutures were then passed through the tendon in a Shahriar-Mg type configuration. Excess stump was excised. The biceps were then secured. The wounds were then copiously irrigated with sterile saline. The anterior wound was closed in layers with 3-0 Monocryl. The portals were closed with 3-0 nylon. Sterile- dressings were applied. Cryo/cuff and UltraSling were applied. She was awoken from anesthesia, transferred to PACU in stable condition. POSTOPERATIVE PLAN: She will be nonweightbearing. She will be in a sling for 6 weeks. Discharged on pain medication. DVT prophylaxis considered but deferred due to no previous personal or family history. I will see the patient back in 10 to 14 days. [id number]/[facility] #: [id number] [facility]ITALAmparo
== END | disposition home or self-care (01) ==
LOC: OR 05:32
PROVIDERS: ATTEND Orthopaedic Surgery
DX: S46.012A Strain of muscle(s) and tendon(s) of the rotator cuff of left shoulder, initial encounter (principal); M75.22 Bicipital tendinitis, left shoulder; X58.XXXA Exposure to other specified factors, initial encounter; Y92.9 Unspecified place or not applicable; Z87.891 Personal history of nicotine dependence; G89.18 Other acute postprocedural pain
CPT/HCPCS: C1713; C1776; J0690; J1100; J2250; J2405; J2704; J2795; J3010